=== PATIENT | female | born 1965 | race Caucasian/White ===

== ENCOUNTER → 2017-01-15 | Outpatient (CLI) | payer BC ==
--- NOTE | 2017-01-15 15:58 | US ---
EXAMINATION TYPE: US pelvic complete DATE OF EXAM: 01/15/2017 COMPARISON: NONE CLINICAL HISTORY: Dysfunctional uterine bleeding N93.8. Patient has had spotting on and off for over 1 year, tried control to help regulate, h/o ovarian cyst and patient states her pain feels like another cyst TECHNIQUE: TA Date of LMP: unknown EXAM MEASUREMENTS: Uterus: 7.5 x 5.4 x 4.5 cm Endometrial Stripe: 1.4 cm Right Ovary: 2.9 x 2.5 x 1.5 cm Left Ovary: 3.8 x 4.3 x 3.0 cm 1. Uterus: Anteverted wnl 2. Endometrium: wnl 3. Right Ovary: wnl 4. Left Ovary: 2.8cm simple appearing cyst 5. Bilateral Adnexa: wnl 6. Posterior cul-de-sac: wnl IMPRESSION: Endometrium measures up to 14 mm in thickness which is upper limits of normal for secreto ry phase of menstrual cycle if patient is still menstruating. If not menstruating and is abnormally t hickened and further investigation with biopsy is advised. A 2.8 cm elongated otherwise simple appear ing cyst in left ovary is identified by technologist. This is abnormal finding in postmenopausal fema le. Correlate clinically.
== END | disposition home or self-care (01) ==
LOC: RADUSWWP 14:50
PROVIDERS: ATTEND Obstetrics & Gynecology
DX: N83.202 Unspecified ovarian cyst, left side (principal); R93.8 Abnormal findings on diagnostic imaging of other specified body structures
CPT/HCPCS: 76856

== ENCOUNTER → 2017-02-20 | Outpatient (CLI) | payer BC ==
[2017-02-20 11:39] LABS: Basophils % (A) 0 %; CH 29.5; CHCM 32.1; Eosinophils # (A) 0.8 k/uL (0-0.7); Eosinophils % (A) 10 %; HCT 40.2 % (34.0-46.0); HDW 2.08; HGB 12.9 gm/dL (11.4-16.0); Luc # (Auto) 0.14; Luc % (Auto) 2; Lymphocytes # (A) 1.7 k/uL (1.0-4.8); Lymphocytes % (A) 21 %; MCH 29.6 pg (25.0-35.0); MCHC 32.1 g/dL (31.0-37.0); MCV 92.2 fL (80.0-100.0); Mean Platelet Volume 7.2; Monocytes # (A) 0.5 k/uL (0-1.0); Monocytes % (A) 7 %; Neutrophils % (A) 61 %; RBC 4.37 m/uL (3.80-5.40); RDW 14.2 % (11.5-15.5); WBC 8.1 k/uL (3.8-10.6); WBC (Perox) 8.63
== END | disposition home or self-care (01) ==
LOC: LABPAT 10:25
PROVIDERS: ATTEND Obstetrics & Gynecology
DX: Z01.810 Encounter for preprocedural cardiovascular examination (principal); Z01.812 Encounter for preprocedural laboratory examination
CPT/HCPCS: 85025; 93005

== ENCOUNTER → 2017-02-20 | Outpatient (CLI) | payer BC ==
[2017-02-20 15:10] LABS: Prolactin 11.8 ng/mL (2.8-29.2)
[2017-02-20 15:11] LABS: Estradiol 40.8 pg/mL
== END | disposition home or self-care (01) ==
LOC: LABWHC1 10:27
PROVIDERS: ATTEND Obstetrics & Gynecology
DX: N92.1 Excessive and frequent menstruation with irregular cycle (principal)
CPT/HCPCS: 36415; 82670; 83001; 83002; 84146; 84443

== ENCOUNTER → 2018-04-04 | Outpatient (CLI) | payer BC ==
--- NOTE | 2018-04-10 15:36 | MM ---
Reason for exam: screening (asymptomatic). Last mammogram was performed 3 years and 5 months ago. History: Benign ultrasound-guided core biopsy, February 28, 2010. Took hormonal contraceptives for 5 years beginning at age 20. MG Screening Mammo w CAD Bilateral CC and MLO view(s) were taken. Prior study comparison: October 20, 2014, bilateral MG screening mammo w CAD. January 14, 2013, bilateral digital screening mammo w/CAD. The breast tissue is heterogeneously dense. This may lower the sensitivity of mammography. Bilateral previous mammotome biopsies. Right breast chronic nodularity. Some of the nodularity on the right MLO view shows same fluctual variation. 1 nodule appears new. ASSESSMENT: Incomplete: need additional imaging evaluation, BI-RAD 0 RECOMMENDATION: Special view mammogram of the right breast.
== END | disposition home or self-care (01) ==
LOC: RADMAMWWP 09:40
PROVIDERS: ATTEND Family Medicine
DX: Z12.31 Encounter for screening mammogram for malignant neoplasm of breast (principal)
CPT/HCPCS: 77067

== ENCOUNTER 2020-05-05 06:46 | Day surgery (SDC) | payer BC ==
[2020-05-02 14:31] VITALS: BMI 33.9
[~2020-05-05 06:46] MED LIST: LACTATED RINGERS 1,000 ML IV SCH
[2020-05-05 07:16] VITALS: TEMP 98.3
[2020-05-05] MEDS ORDERED: LIDOCAINE 1% (10MG/ML) FOR IV START INTRADERMA ONE (07:28)
[2020-05-05 07:32] LABS: Glucose,Whole Blood 141 mg/dL (75-99)
[2020-05-05] MEDS ORDERED: PROPOFOL 10 MG/ML 20 ML VIAL IV ONE (07:52)
--- NOTE | 2020-05-05 07:54 | P.GSHP ---
History of Present Illness H&P Date: 05/05/20 CHIEF COMPLAINT: Colon screen HISTORY OF PRESENT ILLNESS: The patient is a 54-year-old female who presents for colon screen. Lower endoscopy was offered for further evaluation and management. PAST MEDICAL HISTORY: Please see list. PAST SURGICAL HISTORY: Please see list. MEDICATIONS: Please see list. ALLERGIES: Please see list. SOCIAL HISTORY: No illicit drug use FAMILY HISTORY: No reports of Crohn disease or ulcerative colitis. REVIEW OF ORGAN SYSTEMS: CONSTITUTIONAL: No reports of fevers or chills. PHYSICAL EXAM: VITAL SIGNS: Stable GENERAL: Well-developed pleasant in no acute distress. HEENT: No scleral icterus. Extraocular movements grossly intact. Moist buccal mucosa. NECK: Supple without lymphadenopathy. CHEST: Unlabored respirations. Equal bilateral excursions. CARDIOVASCULAR: Regular rate and rhythm. Distal 2+ pulses. ABDOMEN: Soft, nontender, nondistended. MUSCULOSKELETAL: No clubbing, cyanosis, or edema. ASSESSMENT: 1. Colon screen. PLAN: 1. Recommend proceeding with a lower endoscopy Past Medical History Past Medical History: Asthma, Diabetes Mellitus, Hyperlipidemia, Seizure Disorder Additional Past Medical History / Comment(s): states hx of epilepsy, no seizures since age 16, no meds since age 20 History of Any Multi-Drug Resistant Organisms: None Reported Past Surgical History: Orthopedic Surgery Additional Past Surgical History / Comment(s): left thumb joint titanium replacement, D&C Past Anesthesia/Blood Transfusion Reactions: No Reported Reaction Smoking Status: Never smoker Medications and Allergies Home Medications Medication Instructions Recorded Confirmed Type Albuterol Nebulized [Ventolin 2.5 mg INHALATION Q6H PRN 03/08/17 05/05/20 History Nebulized] Atorvastatin [Lipitor] 20 mg PO DAILY 05/02/20 05/02/20 History Fluticasone Propion/Salmeterol 1 inhalation PO DAILY 05/02/20 05/05/20 History [Wixela 250-50 Inhub] metFORMIN HCL [Glucophage] 500 mg PO BID 05/02/20 05/02/20 History Allergies Allergy/AdvReac Type Severity Reaction Status Date / Time amoxicillin [From Augmentin] AdvReac Nausea & Verified 05/05/20 07:04 Vomiting & Diarrhea clavulanic acid AdvReac Nausea & Verified 05/05/20 07:04 [From Augmentin] Vomiting & Diarrhea sulfamethoxazole AdvReac Nausea & Verified 05/05/20 07:04 [From Bactrim] Vomiting & Diarrhea trimethoprim [From Bactrim] AdvReac Nausea & Verified 05/05/20 07:04 Vomiting & Diarrhea seasonal AdvReac Unknown Uncoded 05/05/20 07:04 Surgical - Exam Vital Signs Temp Pulse Resp BP Pulse Ox 98.3 F 68 16 131/69 97 05/05/20 07:15 05/05/20 07:15 05/05/20 07:15 05/05/20 07:15 05/05/20 07:15 Results - Labs Abnormal Lab Results - Last 24 Hours (Table) 05/05/20 Range/Units 07:25 POC Glucose (mg/dL) 141 H (75-99) mg/dL
--- NOTE | 2020-05-05 08:15 | P.PCN ---
Date of Procedure: 05/05/20 Description of Procedure: PREOPERATIVE DIAGNOSIS: Colonoscopy screening POSTOPERATIVE DIAGNOSIS: Colonoscopy screening Sigmoid diverticulosis Internal hemorrhoids, grade 3 External hemorrhoid, grade 3 Sigmoid colon polyp OPERATION: Colonoscopy to the ileocecal valve/cecum Colonoscopy with cold forceps biopsy SURGEON: Beryl Aparicio MD. ANESTHESIA: MAC. INDICATIONS: The patient is an 54-year-old female who presents for first colonoscopy. Benefits and risks were described and informed consent was obtained. DESCRIPTION OF PROCEDURE: The patient had undergone Suprep. The patient had been brought into the operating room and laid in the left lateral decubitus position. After adequate intravenous sedation, the rectum was examined with 2% lidocaine jelly. External hemorrhoids were encountered. The rectal tone was within normal limits. No lesions were palpated in the rectal vault. An Olympus colonoscope was advanced until the cecum, ileocecal valve were clearly viewed. The prep was excellent. Sigmoid diverticulosis was encountered. Colonic polyps were found and removed. No evidence of focal colitis was found. Retroflexion of the scope demonstrated grade 3 internal hemorrhoids without active bleeding or inflammation. The colon was desufflated. The patient had tolerated the procedure well. Withdrawal time was over 6 minutes. FINDINGS: Aronchick preparation quality scale 1 (1-5) Internal hemorrhoids, grade 3 External hemorrhoids, grade 3 No arteriovenous malformations. Sigmoid diverticulosis Removal of 1 polyp: - Cold forceps biopsy at 20 cm from the anal verge, 4 mm polyp, sigmoid colon No focal colitis. RECOMMENDATIONS: Repeat colonoscopy 3 years, 2023 Plan - Discharge Summary Discharge Rx Participant: No New Discharge Prescriptions: Continue Albuterol Nebulized [Ventolin Nebulized] 2.5 mg INHALATION Q6H PRN PRN Reason: Bronchodilation metFORMIN HCL [Glucophage] 500 mg PO BID Atorvastatin [Lipitor] 20 mg PO DAILY Fluticasone Propion/Salmeterol [Wixela 250-50 Inhub] 1 inhalation PO DAILY Discharge Medication List Albuterol Nebulized [Ventolin Nebulized] 2.5 mg INHALATION Q6H PRN 03/08/17 [History] Atorvastatin [Lipitor] 20 mg PO DAILY 05/02/20 [History] Fluticasone Propion/Salmeterol [Wixela 250-50 Inhub] 1 inhalation PO DAILY 05/02/20 [History] metFORMIN HCL [Glucophage] 500 mg PO BID 05/02/20 [History] Follow up Appointment(s)/Referral(s): Beryl Aparicio MD [STAFF PHYSICIAN] - As Needed Patient Instructions/Handouts: *[facility] - (Anesthesia) Endoscopy Discharge Instructions, *Surgery [facility] - (Anesthesia) Discharge Instructions Outpatient Surgery, Diverticulosis Diet (GEN), Diverticulosis (DC), Colorectal Polyps (DC) Activity/Diet/Wound Care/Special Instructions: Repeat colonoscopy in 3 years, 2023 Discharge Disposition: HOME SELF-CARE
[2020-05-05 09:38] VITALS: RESP 16
[2020-05-05 09:40] VITALS: BP 125/74; PULSE 78
== END 2020-05-05 09:40 | disposition home or self-care (01) ==
LOC: ORWHC2ENDO 06:46
PROVIDERS: ATTEND Surgery Plastic and Reconstructive Surgery
DX: Z12.11 Encounter for screening for malignant neoplasm of colon (principal); K63.5 Polyp of colon; K57.30 Diverticulosis of large intestine without perforation or abscess without bleeding; K64.2 Third degree hemorrhoids; J45.909 Unspecified asthma, uncomplicated; E11.9 Type 2 diabetes mellitus without complications; E78.5 Hyperlipidemia, unspecified; G40.909 Epilepsy, unspecified, not intractable, without status epilepticus; Z96.692 Finger-joint replacement of left hand; Z79.84 Long term (current) use of oral hypoglycemic drugs; Z79.51 Long term (current) use of inhaled steroids; Z79.899 Other long term (current) drug therapy; Z88.0 Allergy status to penicillin; Z88.2 Allergy status to sulfonamides
CPT/HCPCS: 88305; 45380; J2704

== ENCOUNTER → 2021-02-15 | Outpatient (CLI) | payer BC ==
--- NOTE | 2021-02-20 11:23 | MM ---
Reason for exam: screening (asymptomatic). Last mammogram was performed 2 years and 10 months ago. History: Benign ultrasound-guided core biopsy, February 28, 2010. Took hormonal contraceptives for 5 years beginning at age 20. Physical Findings: A clinical breast exam by your physician is recommended on an annual basis and results should be correlated with mammographic findings. MG 3D Screening Mammo W/Cad Bilateral CC and MLO view(s) were taken. Prior study comparison: April 04, 2018, bilateral MG screening mammo w CAD. October 20, 2014, bilateral MG screening mammo w CAD. The breast tissue is heterogeneously dense. This may lower the sensitivity of mammography. Previous mammotome biopsy in the right and left breast. There is chronic nodularity bilaterally. Possible underlying distortion posterior upper outer quadrant right breast. ASSESSMENT: Incomplete: need additional imaging evaluation, BI-RAD 0 RECOMMENDATION: Special view mammogram of the right breast. (3D) If lesion persists on supplemental views, image directed ultrasound is recommended. [facility] will attempt to contact patient to return for supplemental views and ultrasound if indicated.
== END | disposition home or self-care (01) ==
LOC: RADMAMWWP 08:42
PROVIDERS: ATTEND Family Medicine
DX: Z12.31 Encounter for screening mammogram for malignant neoplasm of breast (principal)
CPT/HCPCS: 77063; 77067

== ENCOUNTER → 2021-04-28 | Outpatient (CLI) | payer BC ==
--- NOTE | 2021-05-01 08:30 | MM ---
Reason for exam: additional evaluation requested from abnormal screening. Last mammogram was performed 2 months ago. History: Patient is postmenopausal. Benign ultrasound-guided core biopsy, February 28, 2010. Took hormonal contraceptives for 5 years beginning at age 20. Physical Findings: Nurse Summary: 2cm nodule in the right breast at 9 o'clock (nurse karley). MG 3D Work Up W/Cad RT Spot compression CC, spot compression MLO, and LM view(s) were taken of the right breast. Prior study comparison: February 15, 2021, bilateral MG 3d screening mammo w/cad. April 04, 2018, bilateral MG screening mammo w CAD. There is no discrete abnormality including area of concern. These results were verbally communicated with the patient and result sheet given to the patient on 04/28/21. ASSESSMENT: Incomplete: need additional imaging evaluation, BI-RAD 0 RECOMMENDATION: Ultrasound of the right breast. Manage patient on a clinical basis.
--- NOTE | 2021-05-01 08:31 | USB ---
Reason for exam: additional evaluation requested from abnormal screening. History: Patient is postmenopausal. Benign ultrasound-guided core biopsy, February 28, 2010. Took hormonal contraceptives for 5 years beginning at age 20. US Breast Workup Limited RT Right limited breast ultrasound including focal area of concern, retroareolar and axilla demonstrates no cystic or solid lesion seen. These results were verbally communicated with the patient and result sheet given to the patient on 04/28/21. ASSESSMENT: Negative, BI-RAD 1 RECOMMENDATION: Return to routine screening mammogram schedule for both breasts. Manage patient on a clinical basis.
== END | disposition home or self-care (01) ==
LOC: RADMAMWWP 13:27
PROVIDERS: ATTEND Family Medicine
DX: R92.8 Other abnormal and inconclusive findings on diagnostic imaging of breast (principal); Z78.0 Asymptomatic menopausal state
CPT/HCPCS: 77061; 77065

== ENCOUNTER → 2022-02-16 | Outpatient (CLI) | payer BC ==
--- NOTE | 2022-02-19 08:55 | MM ---
Reason for Exam: Screening (asymptomatic). Last screening mammogram was performed 12 month(s) ago. Patient History: Menarche at age 17. First Full-Term at age 30. Late child-bearing (after 30). Postmenopausal. Patient has history of breast feeding. Hormonal Contraceptives for 5 years from age 20 until age 25. Benign Ultrasound-Guided Core Biopsy. Risk Values: Darleen 5 year model risk: 1.8%. NCI Lifetime model risk: 11.7%. Prior Study Comparison: 04/04/2018 Bilateral Screening Mammogram, [facility]. 02/15/2021 Bilateral Screening Mammogram, [facility]. 04/28/2021 Right Diagnostic Mammogram, [facility]. Tissue Density: The breast tissue is heterogeneously dense. This may lower the sensitivity of mammography. Findings: Analyzed By CAD. Stable oval circumscribed 1.6 cm mass with biopsy clip in the right breast lower inner quadrant. A few scattered small benign-appearing round calcifications in the bilateral breasts are redemonstrated. Mammotome biopsy clip in the left breast outer aspect again seen. Benign-appearing bilateral axillary lymph nodes redemonstrated. There is no suspicious new group of microcalcifications or new suspicious mass in either breast. Overall Assessment: Benign, BI-RAD 2 Management: Screening Mammogram of both breasts in 1 year. A clinical breast exam by your physician is recommended on an annual basis and results should be correlated with mammographic findings. Electronically signed and approved by: Mahendra Moore M.D.
== END | disposition home or self-care (01) ==
LOC: RADMAMWWP 08:57
PROVIDERS: ATTEND Family Medicine
DX: Z12.31 Encounter for screening mammogram for malignant neoplasm of breast (principal); Z78.0 Asymptomatic menopausal state
CPT/HCPCS: 77063; 77067

== ENCOUNTER → 2023-07-17 | Day surgery (SDC) | payer BC ==
[~2023-07-17] MED LIST changes: +LIDOCAINE 1% (10MG/ML) FOR IV START INTRADERMA PRN; +PROPOFOL 10 MG/ML 20 ML VIAL IV ONE
[2023-07-17] MEDS: LACTATED RINGERS 1,000 ML IV ONE (07:05)
[2023-07-17 07:27] VITALS: TEMP 97
[2023-07-17 07:30] LABS: Glucose,Whole Blood 208 mg/dL (70-110)
[2023-07-17] MEDS: INSULIN ASPART (NovoLOG) 100 UNIT/ML VIAL SQ ONE (07:33)
--- NOTE | 2023-07-17 07:42 | P.GSHP ---
History of Present Illness H&P Date: 07/17/23 CHIEF COMPLAINT: Colon screen HISTORY OF PRESENT ILLNESS: The patient is a 58-year-old female who presents for colon screen. Lower endoscopy was offered for further evaluation and management. PAST MEDICAL HISTORY: Please see list. PAST SURGICAL HISTORY: Please see list. MEDICATIONS: Please see list. ALLERGIES: Please see list. SOCIAL HISTORY: No illicit drug use FAMILY HISTORY: No reports of Crohn disease or ulcerative colitis. REVIEW OF ORGAN SYSTEMS: CONSTITUTIONAL: No reports of fevers or chills. PHYSICAL EXAM: VITAL SIGNS: Stable GENERAL: Well-developed pleasant in no acute distress. HEENT: No scleral icterus. Extraocular movements grossly intact. Moist buccal mucosa. NECK: Supple without lymphadenopathy. CHEST: Unlabored respirations. Equal bilateral excursions. CARDIOVASCULAR: Regular rate and rhythm. Distal 2+ pulses. ABDOMEN: Soft, nontender, nondistended. MUSCULOSKELETAL: No clubbing, cyanosis, or edema. ASSESSMENT: 1. Colon screen. PLAN: 1. Recommend proceeding with a lower endoscopy Past Medical History Past Medical History: Asthma, Diabetes Mellitus, Hyperlipidemia, Seizure Disorder Additional Past Medical History / Comment(s): Routine colonoscopy, past polyps. states hx of epilepsy, no seizures since age 16, no meds since age 20 History of Any Multi-Drug Resistant Organisms: None Reported Past Surgical History: Orthopedic Surgery Additional Past Surgical History / Comment(s): Colonoscopy, wisdom teeth extraction, left thumb joint titanium replacement, D&C Past Anesthesia/Blood Transfusion Reactions: No Reported Reaction Smoking Status: Never smoker - Past Family History Father Family Medical History: Cancer, Diabetes Mellitus Mother Family Medical History: CVA/TIA Additional Family Medical History / Comment(s): Cardiac arrhythmia. Medications and Allergies Home Medications Medication Instructions Recorded Confirmed Type Albuterol Nebulized [Ventolin 2.5 mg INHALATION Q6H PRN 03/08/07/17/23 History Nebulized] Atorvastatin [Lipitor] 20 mg PO HS 05/02/20 07/17/23 History Cranberry Fruit Extract [Cranberry] 500 mg PO QAM 07/12/23 07/17/23 History Glimepiride [Amaryl] 8 mg PO QAM 07/12/23 07/17/23 History Multivitamins, Thera [Multivitamin 1 tab PO QAM 07/12/23 07/17/23 History (formulary)] Allergies Allergy/AdvReac Type Severity Reaction Status Date / Time amoxicillin [From Augmentin] AdvReac Nausea & Verified 07/17/23 07:11 Vomiting & Diarrhea clavulanic acid AdvReac Nausea & Verified 07/17/23 07:11 [From Augmentin] Vomiting & Diarrhea sulfamethoxazole AdvReac Nausea & Verified 07/17/23 07:11 [From Bactrim] Vomiting & Diarrhea trimethoprim [From Bactrim] AdvReac Nausea & Verified 07/17/23 07:11 Vomiting & Diarrhea seasonal AdvReac Unknown Uncoded 07/17/23 07:11 Surgical - Exam Vital Signs Temp Pulse Resp BP Pulse Ox 97 F L 84 17 142/75 93 L 07/17/23 07:05 07/17/23 07:05 07/17/23 07:05 07/17/23 07:05 07/17/23 07:05 Results - Labs Abnormal Lab Results - Last 24 Hours (Table) 07/17/23 Range/Units 07:29 POC Glucose (mg/dL) 208 H (70-110) mg/dL
[2023-07-17 08:10] VITALS: RESP 16
--- NOTE | 2023-07-17 08:18 | P.PCN ---
Date of Procedure: 07/17/23 Description of Procedure: PREOPERATIVE DIAGNOSIS: Personal history of colon polyps Colonoscopy screening POSTOPERATIVE DIAGNOSIS: Tubular adenoma transverse colon Sigmoid diverticulosis Internal hemorrhoids, grade 3 OPERATION: Colonoscopy to the ileocecal valve Colonoscopy with cold forceps biopsy SURGEON: Beryl Aparicio MD. ANESTHESIA: MAC. INDICATIONS: The patient is an 58-year-old female who presents personal history of colon polyps. Last colonoscopy 5 years. Benefits and risks were described and informed consent was obtained. DESCRIPTION OF PROCEDURE: The patient had undergone Sutab prep. The patient had been brought into the operating room and laid in the left lateral decubitus position. After adequate intravenous sedation, the rectum was examined with 2% lidocaine jelly. The prostate was unremarkable. External hemorrhoids were encountered. The rectal tone was within normal limits. No lesions were palpated in the rectal vault. An Olympus colonoscope was advanced ileocecal valve. The prep was excellent. Sigmoid diverticulosis was encountered. Colonic polyps were found and removed. No evidence of focal colitis was found. Retroflexion of the scope demonstrated grade 3 internal hemorrhoids without active bleeding or inflammation. The colon was desufflated. The patient had tolerated the procedure well. Withdrawal time was over 6 minutes. FINDINGS: Aronchick preparation quality scale 1+ (1-5) Internal hemorrhoids, grade 3 External hemorrhoids, grade 3. No arteriovenous malformations. Sigmoid diverticulosis Removal of 1 polyps: - Cold forceps biopsy at proximal transverse colon, 4 mm polyp. No focal colitis. RECOMMENDATIONS: Repeat colonoscopy in 3 years, 2026 Plan - Discharge Summary Discharge Rx Participant: No New Discharge Prescriptions: Continue Albuterol Nebulized [Ventolin Nebulized] 2.5 mg INHALATION Q6H PRN PRN Reason: Bronchodilation Atorvastatin [Lipitor] 20 mg PO HS Cranberry Fruit Extract [Cranberry] 500 mg PO QAM Multivitamins, Thera [Multivitamin (formulary)] 1 tab PO QAM Glimepiride [Amaryl] 8 mg PO QAM Discharge Medication List Albuterol Nebulized [Ventolin Nebulized] 2.5 mg INHALATION Q6H PRN 03/08/17 [History] Atorvastatin [Lipitor] 20 mg PO HS 05/02/20 [History] Cranberry Fruit Extract [Cranberry] 500 mg PO QAM 07/12/23 [History] Glimepiride [Amaryl] 8 mg PO QAM 07/12/23 [History] Multivitamins, Thera [Multivitamin (formulary)] 1 tab PO QAM 07/12/23 [History] Follow up Appointment(s)/Referral(s): Beryl Aparicio MD [STAFF PHYSICIAN] - As Needed Patient Instructions/Handouts: Diverticulosis (DC), Colorectal Polyps (GEN), Diverticulosis Diet (GEN) Activity/Diet/Wound Care/Special Instructions: Colonoscopy in 3 years, 2026 Discharge Disposition: HOME SELF-CARE
[2023-07-17 08:28] LABS: Glucose,Whole Blood 177 mg/dL (70-110)
[2023-07-17 08:53] VITALS: BP 117/61; PULSE 66
== END | disposition home or self-care (01) ==
LOC: ORWHC2ENDO 06:43
PROVIDERS: ATTEND Surgery Plastic and Reconstructive Surgery
DX: Z12.11 Encounter for screening for malignant neoplasm of colon (principal); D12.3 Benign neoplasm of transverse colon; K57.30 Diverticulosis of large intestine without perforation or abscess without bleeding; K64.2 Third degree hemorrhoids; J45.909 Unspecified asthma, uncomplicated; E11.9 Type 2 diabetes mellitus without complications; E78.5 Hyperlipidemia, unspecified; G40.909 Epilepsy, unspecified, not intractable, without status epilepticus; Z98.890 Other specified postprocedural states; Z83.3 Family history of diabetes mellitus; Z82.3 Family history of stroke; Z79.51 Long term (current) use of inhaled steroids; Z79.84 Long term (current) use of oral hypoglycemic drugs; Z88.0 Allergy status to penicillin; Z88.1 Allergy status to other antibiotic agents; Z88.2 Allergy status to sulfonamides; Z86.010 Personal history of colon polyps
CPT/HCPCS: 45380; J2704; 88305